=== PATIENT | female | born 1975 | race Caucasian/White ===

== ENCOUNTER 2021-12-18 14:28 | Emergency (ER) | payer OTHER, SELFPAY ==
[2021-12-18 14:36] VITALS: BP 136/92; PULSE 105; RESP 20; TEMP 37.3; O2SAT 97
--- NOTE | 2021-12-18 14:37 | ED.EYEPROB ---
HPI - Eye Problem General Chief complaint: Eye Problems Stated complaint: Eye Pain Time Seen by Provider: 12/18/21 14:37 Source: patient and RN notes reviewed History of Present Illness HPI Narrative: Patient is a 45 female who presents the urgent care with complaints of left eye pain. Patient states she woke up with the extreme pain in the left eye after sleeping in her contacts. Patient denies of any injury or trauma to the eye. States that she has held a dark sock over the eye all day with the extreme pain. No other acute complaints. Patient read a plan of care. Some parts of this dictation were generated by voice recognition software and may contain typographical and/or grammatical inaccuracies. Related Data Home Medications Medication Instructions Recorded Confirmed No Home Medications 12/18/21 12/18/21 Allergies Allergy/AdvReac Type Severity Reaction Status Date / Time Penicillins Allergy Anaphylactic Verified 12/18/21 14:42 Shock Review of Systems Review of Systems: CONSTITUTIONAL: Denies fever, chills, or sweats. EYES: reports of left eye pain ENT: Denies rhinorrhea, congestion, sore throat, or otalgia. CARDIOVASCULAR: Denies chest pain, palpitations, or edema. RESPIRATORY: Denies cough or dyspnea. GASTROINTESTINAL: Denies abdominal pain, nausea, vomiting, or diarrhea. GENITOURINARY: Denies dysuria or hematuria. SKIN: Denies rash or itching. MUSCULOSKELETAL: Denies back pain, joint pain, or myalgia. NEUROLOGIC: Denies headache, numbness, or weakness. All other systems reviewed are negative, except as documented in HPI. PMFSH Comments At the time of my signature, I reviewed and agree with the nursing past medical, surgical, social, and family history. There is no relevant family history pertinent to the patient complaint. Exam Narrative: GENERAL: This is a well-nourished, well-developed patient, in no apparent distress. HEAD: normocephalic, atraumatic. EYES: Right eye within normal limits with normal sclera and conjunctiva. No drainage from the right. Patient is unwilling to allow evaluation or assessment of the left eye. EARS: External ears normal NOSE: External nose normal with no obvious nasal discharge, nares without redness, no rhinorrhea. THROAT: Mucous membranes moist NECK: Neck supple SKIN: warm, intact with no suspicious lesions or rash, good texture and turgor. NEURO: awake, alert, and oriented to person, place and time. There were no obvious focal neurologic abnormalities. EXTREMITIES: No clubbing, cyanosis, or edema. Course Course Level of Care: Express Care Visit Vital Signs Vital signs: Vital Signs Temperature 99.2 F 12/18/21 14:36 Pulse Rate 105 H 12/18/21 14:36 Respiratory Rate 20 12/18/21 14:36 Blood Pressure 136/92 H 12/18/21 14:36 Pulse Oximetry 97 12/18/21 14:36 Oxygen Delivery Room Air 12/18/21 14:36 Temperature 99.2 F 12/18/21 14:36 Pulse Rate 105 H 12/18/21 14:36 Respiratory Rate 20 12/18/21 14:36 Blood Pressure 136/92 H 12/18/21 14:36 Pulse Oximetry 97 12/18/21 14:36 Oxygen Delivery Room Air 12/18/21 14:36 Reviewed-patient is informed that they may have pre-hypertension or hypertension based on a blood pressure reading in the department. I recommend the patient call the primary care provider listed on their discharge instructions or a physician of their choice this week to arrange follow-up for further evaluation of possible pre-hypertension or hypertension. Transfer Transfered to: Other ([facility]) Transportation: Other (Private car) Transfer rationale: Acute left eye pain with refusing exam Accepting physician: Dr. Will MDM - Eye Problem MDM Narrative Medical decision making narrative: Advised the patient to not miss her appointment at 4 PM at the [facility]. Phone number to call them at [phone]. If you develop any extreme pain in the eye or loss of vision prior to your appointment?go directly t
== END 2021-12-18 15:00 | disposition other institution (70) ==
PROVIDERS: Emergency Provider Nurse Practitioner Family
DX: H57.12 Ocular pain, left eye (principal); I10 Essential (primary) hypertension
CPT/HCPCS: 99211; G0463

== ENCOUNTER 2022-05-14 16:49 | Emergency (ER) | payer OTHER, SELFPAY ==
--- NOTE | ~2022-05-14 | XR_ITS ---
EXAM: XR knee RT min 4V DATE: 05/14/2022 17:27 HISTORY: PAIN BEHIND KNEE,FEELS LIKE A BALL IS BEHIND THE KNEE,NKI . COMPARISON: None available. FINDINGS: Normal mineralization. No fracture or dislocation. No lytic or blastic lesion. Mild medial and lateral joint space narrowing and tricompartmental osteophytosis. No erosion or periosteal pelletier e. Soft tissues within normal limits. Moderate volume joint fluid. IMPRESSION: No acute osseous finding in the right knee. Mild tricompartmental right knee osteoarthrit is Moderate right knee joint effusion. Reviewed, dictated and finalized at location K. IMPRESSION: No acute osseous finding in the right knee. Mild tricompartmental r ight knee osteoarthritis Moderate right knee joint effusion.
[2022-05-14 16:56] VITALS: BP 120/70; PULSE 98; RESP 18; TEMP 36.6; O2SAT 98
[2022-05-14 16:59] VITALS: BP 120/70; PULSE 98; RESP 18; TEMP 36.6; O2SAT 98
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
== END 2022-05-14 18:00 | disposition home or self-care (01) ==
PROVIDERS: Emergency Provider Registered Nurse
DX: L03.211 Cellulitis of face (principal); M25.461 Effusion, right knee; T22.112A Burn of first degree of left forearm, initial encounter; X10.2XXA Contact with fats and cooking oils, initial encounter; Y99.0 Civilian activity done for income or pay; F17.210 Nicotine dependence, cigarettes, uncomplicated; I10 Essential (primary) hypertension
CPT/HCPCS: 73564; 99213; G0463

== ENCOUNTER 2023-07-13 19:28 | Emergency (ER) | payer OTHER, SELFPAY ==
[2023-07-13 19:38] VITALS: BP 138/98; PULSE 105; RESP 16; TEMP 36.6; O2SAT 97
--- NOTE | 2023-07-13 20:00 | ED.DENTAL ---
HPI - Dental/Oral General Chief complaint: Dental/Oral Stated complaint: mouth pain/tooth pain Time Seen by Provider: 07/13/23 20:00 Source: patient, RN notes reviewed and old records reviewed Mode of arrival: ambulatory Limitations: no limitations History of Present Illness HPI Narrative: 47 year old female who presents to [facility] care with complaints of dental pain to right upper back molar for the past 2 weeks babita increased symptoms for past 2 days. Patient reports that she broke off her upper back molar months ago and she noted a knot with redness and swelling of the gum near tooth this morning. Patient reports that she has been taking Ibuprofen for her discomfort. Patient reports dental problems in the past. MD Complaint: tooth pain Location: Tooth # (3) Onset (ago): week(s) (2 weeks with increase today) Severity scale (1-10): 10 Treatment prior to arrival: oral analgesic (Ibuprofen) Related Data Home Medications Medication Instructions Recorded Confirmed meloxicam 7.5 mg tablet 7.5 mg PO DAILY 05/14/22 05/14/22 pregabalin 50 mg capsule 50 mg PO DIRECTED 05/14/22 05/14/22 Allergies Allergy/AdvReac Type Severity Reaction Status Date / Time Penicillins Allergy Anaphylactic Verified 05/14/22 16:57 Shock Review of Systems Review of Systems: CONSTITUTIONAL: Denies fever, chills, or sweats. ENT: Denies rhinorrhea, congestion, sore throat, or otalgia. Reports dental pain#3 tooth with swelling redness around tooth, tooth has been broken off for several months CARDIOVASCULAR: Denies chest pain, palpitations, or edema. RESPIRATORY: Denies cough or dyspnea. SKIN: Denies rash or itching. MUSCULOSKELETAL: Denies myalgia. NEUROLOGIC: Denies headache All systems reviewed & are unremarkable except as noted in HPI and below PMFSH Past Medical History Medical History Borderline personality disorder Depression Hypertension PTSD (post-traumatic stress disorder) Surgical History Surgical History Previous section x2 Social History Social History Smoking packs per day: 1 Smoking cigarettes per day: 20.0 Years smoked: 20 Smoking pack-years: 20.00 Smoking status: Current every day smoker Tobacco type: cigarettes Alcohol intake: current Alcohol use details: social Substance use type: does not use Gender identity (if verbalized by the patient): Female Comments At time of signature, agree with nursing past medical, surgical, social and family history. There is no relevant family history pertinent to the presenting complaint Exam Narrative: GENERAL: Well-appearing, well-nourished, and in no acute distress. HEAD: Normocephalic, atraumatic. EYES: PERRLA and EOMI. ENT: Nares clear, no rhinorrhea or epistaxis. Mucous membranes moist. Missing teeth, broken teeth, caries, pain with redness and swelling of gums around #3 tooth with tooth broken off, no trismus or facial swelling noted no Willis angina, no fevers noted NECK: Supple.no lymphadenopathy CHEST: Clear to auscultation. No respiratory distress.SAO2 97% on room air HEART: Regular rate and rhythm. No murmur heard. Normal peripheral pulses. SKIN: Warm, dry, no rash. NEURO: No focal deficits. Alert and oriented x3. Course Course Emergency Course: Patient is aware of diagnosis, understands and agrees to treatment plan. Anticipatory guidance given. Patient agrees to follow-up as directed and is aware of reasons to seek care at the emergency department. Portions of this record may have been created with voice recognition software Level of Care: Express Care Visit Vital Signs Vital signs: Vital Signs Temperature 36.6 C 07/13/23 19:38 Pulse Rate 105 H 07/13/23 19:38 Respiratory Rate 16 07/13/23 19:38 Blood Pressure 138/98 H 07/13/23 19:38 Pulse
== END 2023-07-13 20:15 | disposition home or self-care (01) ==
PROVIDERS: Emergency Provider Registered Nurse
DX: K04.7 Periapical abscess without sinus (principal); F17.210 Nicotine dependence, cigarettes, uncomplicated; I10 Essential (primary) hypertension
CPT/HCPCS: 99213; G0463

== ENCOUNTER 2023-08-06 15:29 | Emergency (ER) | payer OTHER, SELFPAY ==
[2023-08-06 15:40] VITALS: BP 124/91; PULSE 100; RESP 20; TEMP 37.6; O2SAT 99
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
== END 2023-08-06 16:13 | disposition home or self-care (01) ==
PROVIDERS: Emergency Provider Nurse Practitioner Family
DX: H16.002 Unspecified corneal ulcer, left eye (principal); M25.572 Pain in left ankle and joints of left foot; F17.210 Nicotine dependence, cigarettes, uncomplicated; I10 Essential (primary) hypertension
CPT/HCPCS: 99213; A9270; G0463